=== PATIENT | male | born 1970 | race African-American/Black ===

== ENCOUNTER 2023-11-01 23:09 | Emergency (ER) | payer BC ==
[~2023-11-01] VITALS: Ht 182.9 cm; Wt 109.1 kg
[2023-11-02 00:53] VITALS: BP 138/79; PULSE 72; RESP 18; TEMP 98.3
== END 2023-11-02 01:14 | disposition home or self-care (01) ==
LOC: EMS 23:12
DX: I10 Essential (primary) hypertension (principal)
CPT/HCPCS: 99281; Z7502